=== PATIENT | male | born 1975 | race Caucasian/White ===

== ENCOUNTER 2018-08-24 20:06 | Emergency (ER) | payer BC ==
[~2018-08-24] VITALS: Ht 172.7 cm; Wt 74.8 kg
[2018-08-25] MEDS ORDERED: HYDROCHLOROTH12.5 MG PO (01:25)
== END 2018-08-25 01:39 | disposition home or self-care (01) ==
LOC: ER 20:06
DX: R20.2 Paresthesia of skin (principal)